=== PATIENT | female | born 1960 | race Caucasian/White ===

== ENCOUNTER 2017-04-03 12:35 | Emergency (ER) | payer OTHER ==
[~2017-04-03] VITALS: Ht 157.5 cm; Wt 109.5 kg
[~2017-04-03 12:35] MED LIST: ASPIR-LOW81 M1; CETIRIZINE HCL10 M2; LOPRESSOR25 MG; TAPAZOLE10 MG; TRAMADOL HCL50 MG
[2017-04-03 13:11] VITALS: BP 109/71
== END 2017-04-03 14:09 | disposition left against medical advice (07) ==
LOC: EME 12:35
DX: K08.89 Other specified disorders of teeth and supporting structures (principal); Z53.21 Procedure and treatment not carried out due to patient leaving prior to being seen by health care provider